=== PATIENT | female | born 1995 | race Two or more races ===

== ENCOUNTER 2017-03-19 20:07 | Inpatient (IN) | payer MEDICAID ==
[~2017-03-19] VITALS: Ht 157.5 cm; Wt 61.8 kg
[2017-03-19] MEDS ORDERED: SODIUM CHLORIDE 0.9% 1,000ML IVBOLUS ONE (23:00)
[2017-03-19] MEDS ORDERED: ONDANSETRON 2MG/ML, 2ML IVPush ONE (23:00)
[2017-03-19] MEDS ORDERED: SODIUM CHLORIDE FLUSH 10ML SYR IVF ONE (23:00)
[2017-03-19] MEDS ORDERED: MORPHINE SULFATE 4 MG/ML, 1ML IVPush PRN (23:00)
[2017-03-19] MEDS ORDERED: PLEASE ENTER ALLERGIES MC SCH (23:00)
[2017-03-19] MEDS ORDERED: IBUP-1484 PO (23:08)
[2017-03-19] MEDS ORDERED: ONDANSETRON 2MG/ML, 2ML ONE (23:21)
[2017-03-19] MEDS ORDERED: MORPHINE SULFATE 4 MG/ML, 1ML ONE (23:21)
[2017-03-19 23:36] LABS: ALANINE AMINOTRANSFERASE 15 U/L (12-78); ALBUMIN 3.8 g/dL (3.4-5.0); ANION GAP 7 mmol/L (5-15); BASOPHILS % (AUTO) 0 % (0-1); CALCIUM 9.4 mg/dL (8.5-10.1); CHLORIDE 105 mmol/L (98-107); CREATININE 0.77 mg/dL (0.55-1.02); EOSINOPHILS # (AUTO) 0.16 x10^3/uL (0-0.8); EOSINOPHILS % (AUTO) 1 % (1-7); LYMPHOCYTES # (AUTO) 1.16 x10^3/uL (1-6.1); LYMPHOCYTES % (AUTO) 8 % (22-44); MD NO; MEAN CORPUSCULAR HEMOGLOBIN 29.9 pg (27.0-34.8); MEAN CORPUSCULAR HGB CONC 33.6 g/dL (32.4-35.8); MEAN CORPUSCULAR VOLUME 88.9 fL (80-100); MEAN PLATELET VOLUME 9.4 fL (7.4-10.4); MONOCYTES # (AUTO) 0.83 x10^3/uL (0-1.4); MONOCYTES % (AUTO) 6 % (2-9); NEUTROPHILS # (AUTO) 12.58 x10^3/uL (1.8-8.0); NEUTROPHILS % (AUTO) 85 % (42-75); PLATELET COUNT 277 x10^3/uL (130-400); RED BLOOD COUNT 4.82 x10^6/uL (3.82-5.3); RED CELL DISTRIBUTION WIDTH 14.3 % (9.6-15.2)
[2017-03-19 23:40] LABS: ALKALINE PHOSPHATASE 69 U/L (45-117); BILIRUBIN,TOTAL 0.4 mg/dL (0.2-1.0); TOTAL PROTEIN 7.8 g/dL (6.4-8.2)
[2017-03-19 23:52] LABS: MICROSCOPIC AUTO
[2017-03-19 23:58] LABS: CULTURE INDICATED? YES
[2017-03-20] MEDS ORDERED: OMNIPAQUE 350 MG/ML, 100ML BOTTLE ONE (00:06)
[2017-03-20] MEDS ORDERED: CEFTRIAXONE PMX 1GM/50ML 50 ML ONE (00:52)
[2017-03-20] MEDS ORDERED: SODIUM CHLORIDE 0.9% 1,000ML IVBOLUS ONE (01:00)
[2017-03-20] MEDS ORDERED: CEFTRIAXONE PMX 1GM/50ML 50 ML IV ONE (01:00)
[2017-03-20 02:11] VITALS: BP 133/91
[2017-03-20] MEDS ORDERED: SODIUM CHLORIDE 0.9% 1,000 ML IV SCH (03:04)
[2017-03-20] MEDS ORDERED: ONDANSETRON 2MG/ML, 2ML IVPush PRN (03:30)
[2017-03-20] MEDS ORDERED: PROMETHAZINE 25 MG/ML, 1ML IM PRN (03:30)
[2017-03-20] MEDS ORDERED: GUAIFENESIN/DM 200-20MG, 10ML UDC PO PRN (03:30)
[2017-03-20] MEDS ORDERED: ONDANSETRON ODT 4 MG PO PRN (03:30)
[2017-03-20] MEDS: METRONIDAZOLE PMX 500MG/100ML 100 ML IV SCH ×3 (03:55→18:14)
[2017-03-20] MEDS: ACETAMINOPHEN 325 MG TABLET PO PRN ×4 (04:07→19:31)
[2017-03-20] MEDS: LEVOFLOXACIN/PMX 750MG/150ML 150 ML IV SCH (05:15)
[2017-03-20 06:34] VITALS: BP 112/68
[2017-03-20 07:43] LABS: BASOPHILS # (AUTO) 0.03 x10^3/uL (0-0.3); BASOPHILS % (AUTO) 0 % (0-1); EOSINOPHILS # (AUTO) 0.13 x10^3/uL (0-0.8); EOSINOPHILS % (AUTO) 1 % (1-7); LYMPHOCYTES % (AUTO) 11 % (22-44); MD NO; MEAN CORPUSCULAR HEMOGLOBIN 29.9 pg (27.0-34.8); MEAN CORPUSCULAR HGB CONC 33.8 g/dL (32.4-35.8); MEAN CORPUSCULAR VOLUME 88.7 fL (80-100); MEAN PLATELET VOLUME 8.9 fL (7.4-10.4); MONOCYTES # (AUTO) 0.94 x10^3/uL (0-1.4); MONOCYTES % (AUTO) 8 % (2-9); NEUTROPHILS % (AUTO) 80 % (42-75); PLATELET COUNT 261 x10^3/uL (130-400); RED BLOOD COUNT 4.38 x10^6/uL (3.82-5.3)
[2017-03-20 07:56] LABS: ALANINE AMINOTRANSFERASE 13 U/L (12-78); ALBUMIN 3.1 g/dL (3.4-5.0); ANION GAP 7 mmol/L (5-15); CALCIUM 8.4 mg/dL (8.5-10.1); CHLORIDE 109 mmol/L (98-107)
[2017-03-20 08:07] LABS: ALKALINE PHOSPHATASE 54 U/L (45-117); BILIRUBIN,TOTAL 0.3 mg/dL (0.2-1.0); TOTAL PROTEIN 6.5 g/dL (6.4-8.2)
[2017-03-20 08:10] LABS: HEMOGLOBIN A1C 5.3 % (4.2-6.3)
[2017-03-20] MEDS: IBUPROFEN 200 MG TABLET PO PRN (13:35)
[2017-03-20 15:08] VITALS: BP 113/71
[2017-03-20] MEDS: SODIUM CHLORIDE 0.9% 1,000 ML IV SCH (18:13)
[2017-03-20 19:24] VITALS: BP 113/78
[2017-03-20 19:58] VITALS: BP 112/80
[2017-03-21] MEDS: IBUPROFEN 200 MG TABLET PO PRN ×2 (01:27→16:03)
[2017-03-21 01:31] VITALS: BP 118/79
[2017-03-21] MEDS: METRONIDAZOLE PMX 500MG/100ML 100 ML IV SCH ×3 (01:41→16:04)
[2017-03-21] MEDS: LEVOFLOXACIN/PMX 750MG/150ML 150 ML IV SCH (05:29)
[2017-03-21] MEDS: SODIUM CHLORIDE 0.9% 1,000 ML IV SCH (05:32)
[2017-03-21 06:33] LABS: CHOL/HDL RATIO 2.2
[2017-03-21 08:19] VITALS: BP 116/79
[2017-03-21] MEDS: ACETAMINOPHEN 325 MG TABLET PO PRN ×2 (11:45→18:41)
[2017-03-21 14:34] VITALS: BP 118/78
[2017-03-21] MEDS ORDERED: METR500T PO (15:07)
[2017-03-21] MEDS ORDERED: IBUP-1222 PO (15:07)
[2017-03-21] MEDS ORDERED: LEVO750T26 PO (15:07)
[2017-03-21 18:50] VITALS: BP 122/79
== END 2017-03-21 19:44 | disposition home or self-care (01) | DRG 872 ==
LOC: ED 23:34 → EDIP 03-20 01:00 → 3NW 03-20 01:59
PROVIDERS: ADMIT Surgery; ATTEND Surgery
DX: A41.9 Sepsis, unspecified organism (principal); R17 Unspecified jaundice; N12 Tubulo-interstitial nephritis, not specified as acute or chronic; N30.90 Cystitis, unspecified without hematuria; F17.200 Nicotine dependence, unspecified, uncomplicated; K52.9 Noninfective gastroenteritis and colitis, unspecified
CPT/HCPCS: 36415; 74177; 80053; 80061; 81001; 83036; 83690; 83735; 84100; 84443; 84703; 85025; 87086; 96361; 96374; 96375; J0696; J1956; J2405; Q9967; J7030

== ENCOUNTER 2019-04-26 08:00 | Emergency (ER) | payer MEDICAID ==
[~2019-04-26] VITALS: Ht 157.5 cm; Wt 60.4 kg
[~2019-04-26 08:00] MED LIST: IBUP-1222 PO; IBUP-1902 PO; LEVO750T26 PO; METR500T PO
[2019-04-26] MEDS ORDERED: ONDANSETRON 2MG/ML, 2ML ONE (08:29)
[2019-04-26] MEDS ORDERED: MORPHINE SULFATE 4 MG/ML, 1ML ONE (08:29)
[2019-04-26] MEDS ORDERED: ONDANSETRON 2MG/ML, 2ML IVPush ONE (08:30)
[2019-04-26] MEDS ORDERED: SODIUM CHLORIDE FLUSH 10ML SYR IVF ONE (08:30)
[2019-04-26] MEDS ORDERED: MORPHINE SULFATE 4 MG/ML, 1ML IVPush PRN (08:30)
[2019-04-26 08:46] LABS: BASOPHILS # (AUTO) 0.01 x10^3/uL (0-0.1); BASOPHILS % (AUTO) 0 % (0-1); EOSINOPHILS # (AUTO) 0.15 x10^3/uL (0-0.4); EOSINOPHILS % (AUTO) 1 % (1-7); LYMPHOCYTES # (AUTO) 1.37 x10^3/uL (1-3.4); LYMPHOCYTES % (AUTO) 9 % (22-44); MD NO; MEAN CORPUSCULAR HEMOGLOBIN 30.5 pg (27.0-34.8); MEAN CORPUSCULAR HGB CONC 33.4 g/dL (32.4-35.8); MEAN CORPUSCULAR VOLUME 91.3 fL (80-100); MEAN PLATELET VOLUME 8.8 fL (7.4-10.4); MONOCYTES # (AUTO) 0.25 x10^3/uL (0.2-0.8); MONOCYTES % (AUTO) 2 % (2-9); NEUTROPHILS # (AUTO) 13.26 x10^3/uL (1.8-6.8); NEUTROPHILS % (AUTO) 88 % (42-75); PLATELET COUNT 258 x10^3/uL (130-400); RED BLOOD COUNT 4.34 x10^6/uL (3.82-5.3); RED CELL DISTRIBUTION WIDTH 13.9 % (9.6-15.2)
[2019-04-26 08:47] LABS: CULTURE INDICATED? YES; MICROSCOPIC INDICATED
[2019-04-26 08:57] LABS: ALBUMIN 3.4 g/dL (3.4-5.0); ANION GAP 7 mmol/L (5-15); CALCIUM 9.2 mg/dL (8.5-10.1); CHLORIDE 108 mmol/L (98-107)
--- NOTE | 2019-04-26 09:00 | NUR ---
pt laying on gurney awake & calm, US at BS, NAD at rest but +pain with US manipulation, responds approp to staff, comfort measures provided, mom at BS, call light within reach.
[2019-04-26 09:02] LABS: ALANINE AMINOTRANSFERASE 12 U/L (12-78); ALKALINE PHOSPHATASE 65 U/L (45-117); BILIRUBIN,TOTAL 0.6 mg/dL (0.2-1.0); CREATININE 0.71 mg/dL (0.55-1.02); TOTAL PROTEIN 7.1 g/dL (6.4-8.2)
[2019-04-26] MEDS ORDERED: CEFTRIAXONE PMX 1GM/50ML 50 ML IV ONE (10:00)
[2019-04-26] MEDS ORDERED: KETOROLAC 30 MG/1 ML IVPush ONE (10:00)
--- NOTE | 2019-04-26 10:02 | NUR ---
pt continues laying on gurney awake & "a little more comfortable but still have pain", NAD at rest, responds approp to staff, comfort measures provided, mom at BS, call light within reach.
[2019-04-26] MEDS ORDERED: KETOROLAC 30 MG/1 ML ONE (10:06)
[2019-04-26] MEDS ORDERED: CEFTRIAXONE PMX 1GM/50ML 50 ML ONE (10:06)
--- NOTE | 2019-04-26 11:01 | NUR ---
pt laying on gurney with eyes closed but more comfortable after meds, NAD at rest, responds approp to staff, comfort measures provided, mom at BS, call light within reach.
[2019-04-26 11:45] VITALS: BP 101/69
--- NOTE | 2019-04-26 11:46 | NUR ---
Patient given discharge instructions and Rx, they have confirmed that they understand the instructions. Patient ambulatory with steady gait.
== END 2019-04-26 11:48 | disposition home or self-care (01) ==
LOC: ED 10:39
DX: N10 Acute pyelonephritis (principal); D72.829 Elevated white blood cell count, unspecified; R11.2 Nausea with vomiting, unspecified; F17.210 Nicotine dependence, cigarettes, uncomplicated
CPT/HCPCS: 36415; 76700; 80053; 81001; 83690; 84703; 85025; 87077; 87086; 87186; 96365; 96375; 99284; J0696; J1885; J2270; J2405